=== PATIENT | female | born 1975 | race Caucasian/White ===

== ENCOUNTER 2018-07-10 17:48 | Emergency (ER) | payer MEDICAID, OTHER ==
[~2018-07-10] VITALS: Ht 157.5 cm; Wt 63.0 kg
[2018-07-10] MEDS ORDERED: LISI40TA4 PO (18:04)
[2018-07-10] MEDS ORDERED: MORPHINE SULFATE 4 MG/ML CPJ (NOT FOR IM USE) IV STA (21:45)
[2018-07-10] MEDS ORDERED: ONDANSETRON HCL 4MG/2ML INJ IV STA (21:45)
[2018-07-10 22:32] LABS: BASOPHILS % 0.3 % (0.0-2.0); EOSINOPHILS % 0.4 % (0.0-5.0); HEMATOCRIT. 36.4 % (36.0-48.0); HEMOGLOBIN. 12.7 g/dL (12.0-16.0); LYMPHOCYTES % 35.4 % (20.0-50.0); MEAN CORPUSCULAR HEMOGLOBIN 30.8 pg (28.0-32.0); MEAN CORPUSCULAR VOLUME 88.2 fL (81.0-99.0); MEAN PLATELET VOLUME 7.5 fl (7.4-10.4); MONOCYTES % 6.9 % (2.0-8.0); PLATELET 380 x1000/uL (130-400); RED BLOOD CELL COUNT 4.12 mill/uL (4.2-5.4); RED CELL DISTRIBUTION WIDTH 12.5 % (11.6-14.6)
[2018-07-10 22:35] LABS: CHLORIDE 107 mEq/L (98-107)
[2018-07-10] MEDS ORDERED: SODIUM CHLORIDE 0.9% 1,000 ML IV ONE (23:00)
[2018-07-10 23:03] LABS: CLARITY URINE CLEAR (CLEAR); COLOR URINE YELLOW (YELLOW); KETONES URINE NEGATIVE (NEGATIVE); LEUKOCYTE ESTERASE URINE NEGATIVE (NEGATIVE); NITRITE URINE NEGATIVE (NEGATIVE); OCCULT BLOOD URINE NEGATIVE (NEGATIVE); PROTEIN URINE NEGATIVE (NEGATIVE); SPECIFIC GRAVITY URINE 1.006 (1.005-1.030); UROBILINOGEN URINE 0.2 E.U./dL (0.2-1.0)
[2018-07-10] MEDS ORDERED: ONDANSETRON HCL 4MG/2ML INJ IV ONE (23:45)
[2018-07-10] MEDS ORDERED: HYDRALAZINE 20MG/ML VIAL IV ONE (23:45)
[2018-07-11 00:34] VITALS: BP 152/57
== END 2018-07-11 00:34 | disposition home or self-care (01) ==
LOC: ER 17:48
DX: I10 Essential (primary) hypertension (principal); R10.84 Generalized abdominal pain; R11.0 Nausea; E11.9 Type 2 diabetes mellitus without complications; Z98.890 Other specified postprocedural states
CPT/HCPCS: 36415; 71045; 80053; 81003; 81025; 83690; 84484; 85025; 85610; 93005; 96361; 96374; 96375; 96376; 99284; J0360; J2270; J2405; J7030; Z7610

== ENCOUNTER 2018-11-10 14:11 | Emergency (ER) | payer MEDICAID ==
[~2018-11-10] VITALS: Ht 157.5 cm; Wt 64.0 kg
[~2018-11-10 14:11] MED LIST: LISI40TA4 PO
[2018-11-10] MEDS ORDERED: ONDANSETRON HCL 4MG/2ML INJ IV STA (15:04)
[2018-11-10] MEDS ORDERED: MORPHINE SULFATE 4 MG/ML CPJ (NOT FOR IM USE) IV STA (15:04)
[2018-11-10 15:31] LABS: HEMATOCRIT. 38.7 % (36.0-48.0); HEMOGLOBIN. 13.3 g/dL (12.0-16.0); MEAN CORPUSCULAR HEMOGLOBIN 30.6 pg (28.0-32.0); MEAN CORPUSCULAR VOLUME 89.3 fL (81.0-99.0); MEAN PLATELET VOLUME 7.5 fl (7.4-10.4); PLATELET 364 x1000/uL (130-400); RED BLOOD CELL COUNT 4.33 mill/uL (4.2-5.4); RED CELL DISTRIBUTION WIDTH 12.4 % (11.6-14.6)
[2018-11-10 15:32] LABS: CHLORIDE 104 mEq/L (98-107)
[2018-11-10 15:33] LABS: PROTHROMBIN TIME 10.3 sec (9.6-11.0)
[2018-11-10 15:38] LABS: HCG SCREEN NEGATIVE
[2018-11-10 16:49] VITALS: BP 150/83
[2018-11-10 17:34] LABS: PLATELET ESTIMATE NORMAL
== END 2018-11-10 16:50 | disposition home or self-care (01) ==
LOC: ER 14:17
DX: N20.0 Calculus of kidney (principal); E11.9 Type 2 diabetes mellitus without complications; I10 Essential (primary) hypertension; Z98.890 Other specified postprocedural states
CPT/HCPCS: 36415; 74176; 80053; 83690; 84703; 85025; 85610; 96374; 96375; 99284; J2270; J2405

== ENCOUNTER 2020-01-15 14:05 | Emergency (ER) | payer MEDICAID ==
[~2020-01-15] VITALS: Ht 167.6 cm; Wt 70.0 kg
[2020-01-15] MEDS ORDERED: ACETAMINOPHEN 325MG TABLET PO STA (15:13)
[2020-01-15] MEDS ORDERED: ALBUTEROL (0.083%) 2.5MG/3ML NEB HHN STA (15:13)
[2020-01-15 16:22] VITALS: BP 159/83
== END 2020-01-15 18:00 | disposition home or self-care (01) ==
LOC: ER 14:05
DX: U07.1 COVID-19 (principal); E11.9 Type 2 diabetes mellitus without complications; I10 Essential (primary) hypertension
CPT/HCPCS: 71045; 81025; 87635; 93005; 94640; 99285; C9803; Z7610

== ENCOUNTER 2020-10-29 13:52 | Emergency (ER) | payer MEDICAID ==
[~2020-10-29] VITALS: Ht 157.5 cm; Wt 68.0 kg
[~2020-10-29 13:52] MED LIST changes: +LISI40TA13 PO; -LISI40TA4 PO
[2020-10-29] MEDS ORDERED: KETOROLAC 60MG/2ML VIAL IM STA (16:45)
[2020-10-29 17:27] LABS: CLARITY URINE CLEAR (CLEAR); COLOR URINE YELLOW (YELLOW); KETONES URINE NEGATIVE (NEGATIVE); LEUKOCYTE ESTERASE URINE 2+ (NEGATIVE); NITRITE URINE NEGATIVE (NEGATIVE); OCCULT BLOOD URINE NEGATIVE (NEGATIVE); PH URINE 5.5 (4.5-8.0); PROTEIN URINE NEGATIVE (NEGATIVE); SPECIFIC GRAVITY URINE 1.008 (1.005-1.030); UROBILINOGEN URINE 0.2 E.U./dL (0.2-1.0)
[2020-10-29] MEDS ORDERED: AMOX-424 MT (17:39)
[2020-10-29] MEDS ORDERED: IBUP-2029 MT (17:41)
[2020-10-29] MEDS ORDERED: CYCL10TA7 MT (17:42)
[2020-10-29 18:08] VITALS: BP 148/70
== END 2020-10-29 18:08 | disposition home or self-care (01) ==
LOC: ER 13:52
DX: N12 Tubulo-interstitial nephritis, not specified as acute or chronic (principal); I10 Essential (primary) hypertension; E11.9 Type 2 diabetes mellitus without complications
CPT/HCPCS: 81003; 81025; 96372; 99283; J1885

== ENCOUNTER 2024-11-17 20:23 | Emergency (ER) | payer MEDICAID ==
[~2024-11-17] VITALS: Ht 157.5 cm; Wt 62.2 kg
[~2024-11-17 20:23] MED LIST changes: +AMOX-424 MT; +CYCL10TA21 MT; +IBUP-1455 MT; -LISI40TA13 PO; +LISI40TA21 PO
[2024-11-17 20:30] VITALS: O2SAT 100
[2024-11-17 21:56] LABS: CLARITY URINE TURBID (CLEAR); COLOR URINE YELLOW (YELLOW); GLUCOSE URINE NEGATIVE (NEGATIVE); KETONES URINE NEGATIVE (NEGATIVE); LEUKOCYTE ESTERASE URINE 3+ (NEGATIVE); NITRITE URINE NEGATIVE (NEGATIVE); OCCULT BLOOD URINE 2+ (NEGATIVE); PH URINE 5.5 (4.5-8.0); PROTEIN URINE NEGATIVE (NEGATIVE); SPECIFIC GRAVITY URINE 1.005 (1.005-1.030); UROBILINOGEN URINE 0.2 E.U./dL (0.2-1.0)
[2024-11-17 22:11] LABS: SQUAMOUS EPITHELIAL CELL URINE 1+ /lpf (RARE/1+)
[2024-11-17 22:12] LABS: WBC URINE TNTC /hpf (0-2)
[2024-11-17 22:13] LABS: BACTERIA URINE 1+; RBC URINE 25-50 /hpf (0-2)
[2024-11-17] MEDS ORDERED: CEFP200T13 MT (23:17)
[2024-11-17] MEDS ORDERED: PYR200 MT (23:17)
[2024-11-17 23:38] VITALS: BP 131/83; PULSE 100; RESP 18; TEMP 36.7; O2SAT 100
== END 2024-11-17 23:53 | disposition home or self-care (01) ==
LOC: ER 20:23
DX: N39.0 Urinary tract infection, site not specified (principal); I10 Essential (primary) hypertension; E11.9 Type 2 diabetes mellitus without complications
CPT/HCPCS: 81003; 99283